=== PATIENT | male | born 1970 | race Caucasian/White ===

== ENCOUNTER 2022-04-07 14:09 | Emergency (ER) | payer OTHER ==
[2022-04-07 14:30] VITALS: TEMP 98; BMI 26.2
[2022-04-07] MEDS ORDERED: ACETAMINOPHEN 1000 MG/100 ML BAG IVPB ONE (16:51)
[2022-04-07] MEDS ORDERED: ACETAMINOPHEN INJECTION 100 ML IVPB ONE (17:00)
[2022-04-07 17:53] LABS: BASO % 0.4 % (0-2.0); EOS % 2.3 % (0-4.5); HEMATOCRIT 44.8 % (35.4-49); LYMPH % 37.5 % (8-40); MCH 30.5 pg (25.7-33.7); MCHC 33.4 g/dl (32.0-35.9); MEAN CELL VOLUME 91.3 fl (80-96); MEAN PLT VOLUME 7.9 fl (7.5-11.1); MONO % 9.7 % (3.8-10.2); NEUT % 50.1 % (42.8-82.8); PLATELET COUNT 233 10^3/uL (134-434); RBC 4.91 M/mm3 (4.00-5.60); RDW 13.5 % (11.9-15.9); WHITE BLOOD COUNT 5.9 K/mm3 (4.0-10.0)
[2022-04-07 18:01] LABS: INR 0.97 (0.83-1.09); PROTHROMBIN TIME (PATIENT) 11.1 SEC (9.7-13.0)
[2022-04-07 18:04] LABS: ACTIVATED PTT 30.7 SECONDS (25.2-36.5)
[2022-04-07 18:19] LABS: ALBUMIN 4.1 g/dl (3.4-5.0); BLOOD UREA NITROGEN 12.2 mg/dL (7-18); CALCIUM 9.5 mg/dL (8.5-10.1)
[2022-04-07 18:22] LABS: CREATININE 0.9 mg/dL (0.55-1.3)
[2022-04-07 18:24] LABS: BILIRUBIN,TOTAL 0.6 mg/dL (0.2-1); TOT PROT 7.3 g/dl (6.4-8.2)
[2022-04-07 22:37] VITALS: BP 120/82; PULSE 76; RESP 18
== END 2022-04-07 22:37 | disposition home or self-care (01) ==
LOC: JER 14:09
PROC: 3E033GC Introduction of Other Therapeutic Substance into Peripheral Vein, Percutaneous Approach (ICD-10-PCS; principal; 2022-04-07)
DX: R07.9 Chest pain, unspecified (principal); R51.9 Headache, unspecified
CPT/HCPCS: 0241U-QW; 36415; 71046-TC-FY; 71275-TC; 80053; 82962; 83690; 84484; 85025; 85610; 85730; 93005; 93010; 99285-25; Q9967

== ENCOUNTER 2022-09-19 13:27 | Emergency (ER) | payer OTHER ==
[2022-09-19 13:53] VITALS: BP 142/84; PULSE 70; RESP 20; TEMP 99.3; BMI 25.1
[2022-09-19 14:18] LABS: HEMATOCRIT 46.8 % (35.4-49); HEMOGLOBIN 15.7 G/dL (11.7-16.9); MCHC 33.5 g/dl (32.0-35.9); MEAN CELL VOLUME 92.5 fl (80-96); MEAN PLT VOLUME 8.1 fl (7.5-11.1); PLATELET COUNT 210.5 10^3/uL (134-434); RBC 5.06 10^6/uL (4.00-5.60); RDW 13.9 % (11.9-15.9); WHITE BLOOD COUNT 7.7 10^3/uL (4.0-10.8)
[2022-09-19 14:45] LABS: ALBUMIN 4.3 g/dl (3.4-5.0); BILIRUBIN,TOTAL 0.6 mg/dl (0.2-1); BLOOD UREA NITROGEN 13.9 mg/dl (7-18); CALCIUM 9.8 mg/dl (8.5-10.1); CREATININE 0.7 mg/dl (0.6-1.3); POTASSIUM 4.4 mmol/L (3.5-5.1); SGOT/AST 18.7 U/L (15-37); SGPT/ALT 37.8 U/L (7-52); TOT PROT 6.6 g/dl (6.4-8.2)
== END 2022-09-19 15:32 | disposition home or self-care (01) ==
LOC: FER 13:27
DX: M25.512 Pain in left shoulder (principal); M79.602 Pain in left arm; R07.89 Other chest pain
CPT/HCPCS: 36415; 71045-TC-FY; 80053; 84484; 85027; 93005; 99285-25